=== PATIENT | female | born 1980 | race African-American/Black ===

== ENCOUNTER 2017-01-28 06:52 | Emergency (ER) | payer MEDICAID, OTHER ==
[~2017-01-28] VITALS: Ht 167.6 cm; Wt 120.0 kg
[2017-01-28 06:55] VITALS: BP 147/88; PULSE 67; RESP 16; TEMP 98.2; O2SAT 97
--- NOTE | 2017-01-28 07:18 | PD ---
HPI Chief Complaint: Back/ Neck Pain or Injury Time Seen by Provider: 07:18 Travel History International Travel<30 days: No Contact w/Intl Traveler<30days: No Traveled to known affect area: No History of Present Illness HPI 36-year-old female presents to emergency department complaining of neck and back pain that started a couple of weeks ago after a fall from bed. Patient states that when she fell the bed tipped and she felt "twisted" on the ground. She decided to come in today because her pain has become worse. Patient states that she also has a frontal headache, mainly left frontal, achy and constant. Patient states she did hit her head and felt "dizzy" afterwards but denies dizziness or lightheadedness now. She denies LOC or visual changes. States nothing improves relieved her pain. Patient has taken vqfl-aqc-[id number] anti- inflammatories without relief. Patient denies fever, chills, IV drug use, loss of bowel or bladder function, saddle anesthesia. Patient also denies weakness. Denies urinary discomfort or symptoms. Patient states he has a history of congestive heart failure but does not take any medications for this. 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 [facility] Past Medical History Cardiovascular Problems: Yes ?: Not LMP: 01/20/17 Social History Tobacco Use: No Allergies-Medications (Allergen,Severity, Reaction): Coded Allergies: Penicillins (Verified Allergy, Unknown, 01/28/17) Reported Meds & Prescriptions Reported Meds & Active Scripts Active Robaxin (Methocarbamol) 500 Mg Tab 500 Mg PO TID 3 Days Review of Systems Except as stated in HPI: all other systems reviewed are Neg Physical Exam Narrative GENERAL: Well-developed well-nourished in mild distress SKIN: Focused skin assessment warm/dry. HEAD: Atraumatic. Normocephalic. EYES: Pupils equal and round. No scleral icterus. No injection or drainage. EOMI ENT: No nasal bleeding or discharge. Mucous membranes pink and moist. NECK: Trachea midline. No JVD. No midline tenderness CARDIOVASCULAR: Regular rate and rhythm. No murmur appreciated. RESPIRATORY: No accessory muscle use. Clear to auscultation. Breath sounds equal bilaterally. MUSCULOSKELETAL: No obvious deformities. No clubbing. No cyanosis. No edema. BACK: No CVA tenderness. No rash. Point tenderness versus paraspinous muscle tenderness to palpation- when evaluating, patient states she had pain everywhere. NEUROLOGICAL: Awake and alert. No obvious cranial nerve deficits. Motor grossly within normal limits. Normal speech. PSYCHIATRIC: Appropriate mood and affect; insight and judgment normal. Data Data Last Documented VS Vital Signs Date Time Temp Pulse Resp B/P (MAP) Pulse Ox O2 Delivery O2 Flow Rate FiO2 01/28/17 09:09 01/28/17 06:55 98.2 67 16 97 Room Air Orders Orders Spine, Cervical - Ltd (Ap&Lat) (01/28/17 ) Spine, Lumbar - Ltd (Ap & Lat) (01/28/17 ) Ketorolac Inj (Toradol Inj) (01/28/17 07:30) Orphenadrine Inj (Norflex Inj) (01/28/17 07:30) Ct Brain W/O Iv Contrast(Rout) (01/28/17 ) Ed Discharge Order (01/28/17 08:58) MDM Medical Decision Making Medical Screen Exam Complete: Yes Emergency Medical Condition: Yes Differential Diagnosis Lumbar contusion versus fracture versus sprain Cervical contusion versus fracture versus sprain Head contusion versus fracture versus hematoma Narrative Course 36-year-old female presents to emergency department complaining of neck and back pain that started a couple of weeks ago after a fall from bed. Patient states that when she fell the bed tipped and she felt "twisted" on the ground. She decided to come in today because her pain has become worse. Patient states that she also has a frontal headache, mainly left frontal, achy and constant. Patient states she did hit her head and felt "dizzy" afterwards but denies dizziness or lightheadedness now. She denies LOC or visual changes. States nothing improves relieved her pain. Patient has taken endf-yby-jngpqka anti- inflammatories without relief. Patient denies fever, chills, IV drug use, loss of bowel or bladder function, saddle anesthesia. Patient also denies weakness. Denies urinary discomfort or symptoms. Patient states he has a history of congestive heart failure but does not take any medications for this. 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 Vital signs stable I suspect that she had a lumbar sprain secondary to the fall. She is neurovascularly intact. Cranial nerves II through XII grossly intact. No evidence of head trauma. In addition patient recently started a new job at [employer] which requires standing. I suspect that in combination with the injury several weeks ago this has contributed to multiple aches and pains- consider secondary to deconditioning. No red flags Lumbar and cervical spine x-ray- acute process Head CT- no acute process Patient discharged with muscle relaxer for symptom management. Advised to use caution with this medication as it may cause drowsiness Advised patient to perform stretches daily and follow up with primary care. Advised to follow-up in the emergency department for worsening or persistent symptoms Diagnosis Primary Impression: Lumbar contusion Qualified Codes: S30.0XXA - Contusion of lower back and pelvis, initial encounter Additional Impressions: Contusion Qualified Codes: S10.93XA - Contusion of unspecified part of neck, initial encounter Head contusion Qualified Codes: S00.93XA - Contusion of unspecified part of head, initial encounter Referrals: [facility] Additional Instructions: Perform light stretches of the lower back and legs, and alternate heat and ice packs. If you develop increased pain, weakness, fever, chills, or bowel or bladder issues, return to the ED for further treatment and evaluation. Follow up with your primary care physician in 2-3 days. Scripts Methocarbamol (Robaxin) 500 Mg Tab 500 MG PO TID for Muscle Spasm for 3 Days, TAB 0 Refills Prov: Sharmila Falcon MD 01/28/17 Disposition: 01 DISCHARGE HOME Condition: Stable Kourtney Fenton Jan 28, 2017 07:18
[2017-01-28] MEDS ORDERED: KETOROLAC TROMETHAMINE 60 MG/2 ML (IM) VIAL IM ONE (07:30)
[2017-01-28] MEDS ORDERED: ORPHENADRINE INJ 60 MG/2 ML AMP IM ONE (07:30)
--- NOTE | 2017-01-28 08:00 | RADRPT ---
EXAM DATE/TIME: 01/28/2017 07:37 [facility] COMPARISON: No previous studies available for comparison. INDICATIONS : Fell x3 weeks ago pain left neck into left shoulder. MEDICAL HISTORY : None. SURGICAL HISTORY : None. ENCOUNTER: Initial ACUITY: 3 weeks PAIN SCORE: 10/10 LOCATION: Left cervical spine. FINDINGS: Two projection examination was performed. There is normal alignment and curvature of the vertebral b odies down to the level of C7. No evidence of fracture or subluxation. Vertebral body height is shailesh ntained. The disc spaces are maintained. The prevertebral soft tissues are of normal thickness. Th e atlanto-axial articulation is intact. CONCLUSION: 1. No acute fracture or subluxation. Pedrito Alcazar MD on January 28, 2017 at 7:57 Board Certified Radiologist. This report was verified electronically.
--- NOTE | 2017-01-28 08:03 | RADRPT ---
EXAM DATE/TIME: 01/28/2017 07:44 [facility] COMPARISON: No previous studies available for comparison. INDICATIONS : Fell [id number] ago, pain left lower back radiating into left hip. MEDICAL HISTORY : None. SURGICAL HISTORY : None. ENCOUNTER: Initial ACUITY: 3 weeks PAIN SCORE: 10/10 LOCATION: Left lumbar spine. FINDINGS: Two view examination was performed. There are five non-rib bearing vertebral bodies. The vertebral bodies are in normal alignment without evidence of subluxation or scoliosis. The disc spaces are shailesh ntained. The pedicles are intact. Surgical clips in the right upper quadrant. Calcifications in the pelvis likely reflecting phleboliths. Bony mineralization is normal. No fracture is identified. CONCLUSION: 1. No acute fracture or subluxation. Pedrito Alcazar MD on January 28, 2017 at 8:00 Board Certified Radiologist. This report was verified electronically.
--- NOTE | 2017-01-28 08:35 | RADRPT ---
EXAM DATE/TIME: 01/28/2017 08:20 [facility] COMPARISON: No previous studies available for comparison. INDICATIONS : Fell out of bed a couple of weeks ago, headaches ever since. RADIATION DOSE: 36.06 CTDIvol (mGy) MEDICAL HISTORY : Congestive hearrt failure. SURGICAL HISTORY : Appendectomy. section.Cholecystectomy. ENCOUNTER: Initial ACUITY: 2 weeks PAIN SCALE: 4/10 LOCATION: cranial TECHNIQUE: Multiple contiguous axial images were obtained of the head. Using automated exposure control and adj ustment of the mA and/or kV according to patient size, radiation dose was kept as low as reasonably a chievable to obtain optimal diagnostic quality images. DICOM format image data is available electro nically for review and comparison. FINDINGS: CEREBRUM: The ventricles are normal for age. No evidence of midline shift, mass lesion, hemorrhage or acute in farction. No extra-axial fluid collections are seen. POSTERIOR FOSSA: The cerebellum and brainstem are intact. The 4th ventricle is midline. The cerebellopontine angle i s unremarkable. EXTRACRANIAL: The visualized portion of the orbits is intact. SKULL: The calvaria is intact. No evidence of skull fracture. CONCLUSION: Normal examination. Regan Aceves MD on January 28, 2017 at 8:33 Board Certified Radiologist. This report was verified electronically.
[2017-01-28] MEDS ORDERED: ROBA500T PO (08:49)
== END 2017-01-28 09:36 | disposition home or self-care (01) ==
LOC: NEPD 06:52
DX: S30.0XXA Contusion of lower back and pelvis, initial encounter (principal); S10.93XA Contusion of unspecified part of neck, initial encounter; S00.93XA Contusion of unspecified part of head, initial encounter; W06.XXXA Fall from bed, initial encounter
CPT/HCPCS: 70450; 72040; 72100; 96372; 99285; J1885; J2360

== ENCOUNTER 2017-05-12 12:08 | Emergency (ER) | payer MEDICAID ==
[~2017-05-12] VITALS: Ht 167.6 cm; Wt 104.5 kg
[~2017-05-12 12:08] MED LIST: ROBA500T PO
[2017-05-12 12:30] VITALS: BP 141/65; PULSE 71; RESP 18; TEMP 98.6; O2SAT 100
--- NOTE | 2017-05-12 20:10 | PD ---
Physical Exam Date Seen by Provider: May 12, 2017 Time Seen by Provider: 13:19 Narrative 36 year old female presents to the emergency department for evaluation of abdominal pain, nausea, chills, diarrhea, and vomiting that started last night. Current pain is 10/10. Data Data Last Documented VS Vital Signs Date Time Temp Pulse Resp B/P (MAP) Pulse Ox O2 Delivery O2 Flow Rate FiO2 05/12/17 12:30 98.6 71 18 141/65 (90) 100 Orders Orders Complete Blood Count With Diff (05/12/17 12:32) Comprehensive Metabolic Panel (05/12/17 12:32) Lipase (05/12/17 12:32) Urinalysis - C+S If Indicated (05/12/17 12:32) Ed Urine Pregnancytest Poc (05/12/17 12:32) MDM Supervised Visit with BRUNO: No Narrative Course 36 year old female presents to the emergency department for evaluation of abdominal pain since last night. Patient is initially seen in triage. She left AMA before she could be moved to a medical bed. Diagnosis Primary Impression: Left against medical advice Disposition: 07 AGAINST MEDICAL ADVICE Marcela Jones May 12, 2017 20:10
== END 2017-05-12 13:19 | disposition left against medical advice (07) ==
LOC: NED 12:08
DX: R10.9 Unspecified abdominal pain (principal); Z53.21 Procedure and treatment not carried out due to patient leaving prior to being seen by health care provider
CPT/HCPCS: 99281